=== PATIENT | male | born 1950 | race African-American/Black ===

== ENCOUNTER 2023-04-25 10:15 | Emergency (ER) | payer MEDICARE ==
[2023-04-25 11:02] LABS: #Eosinphils 0.1 thou/uL (0.0-0.7); #Monocytes 0.7 thou/uL (0.11-0.59); #Neutrophils 5.9 thou/uL (1.40-6.50); %Basophils 0.5 % (0.0-1.0); %Eosinophils 1.8 % (0.0-10.0); %Lymphocytes 11.1 % (21.0-51.0); %Monocytes 8.7 % (0.0-10.0); %Neutrophils 77.4 % (42.0-75.0); Hemoglobin 6.6 g/dL (14.0-18.0); Mean Corpuscular Hemoglobin 28.7 pg (27.0-31.0); Mean Corpuscular Volume 95.7 fl (78.0-98.0); Mean Platelet Volume 8.9 fL (7.4-10.4); Platelet Count 379 10x3/uL (130-400); RBC Distribution Width 21.7 % (11.5-14.5); White Blood Cell (WBC) Count 7.6 10x3/uL (4.8-10.8)
[2023-04-25 11:25] LABS: ALT (SGPT) 15 U/L (8-55); AST (SGOT) 16 U/L (5-34); Albumin 3.5 g/dL (3.4-4.8); Alkaline Phosphatase 47 U/L (40-110); Anion Gap 15 mmol/L (10-20); BUN (Urea Nitrogen) 91 mg/dL (8.4-25.7); Bilirubin, Total 0.2 mg/dL (0.2-1.2); Calc. Creatinine Clearance 0 mL/min (70-130); Calcium 8.5 mg/dL (7.8-10.44); Carbon Dioxide 18 mmol/L (23-31); Chloride 113 mmol/L (98-107); Estimated GFR 11; Globulin 3.6 g/dL (2.4-3.5); Glucose 141 mg/dL (83-110); Potassium 4.7 mmol/L (3.5-5.1); Protein, Total 7.1 g/dL (5.8-8.1); Sodium 141 mmol/L (136-145)
== END 2023-04-25 15:27 | disposition home or self-care (01) ==
LOC: ERS 10:15
DX: D64.9 Anemia, unspecified (principal); I10 Essential (primary) hypertension; Z79.82 Long term (current) use of aspirin
CPT/HCPCS: 36430; 80053; 85025; 86850; 86900; 86901; 86920; 99284; P9016; 36415

== ENCOUNTER 2023-06-05 12:16 | Emergency (ER) | payer MEDICARE ==
[2023-06-05 13:05] LABS: #Basophils 0.1 thou/uL (0.0-0.2); #Eosinphils 0.2 thou/uL (0.0-0.7); #Monocytes 0.7 thou/uL (0.11-0.59); #Neutrophils 5.1 thou/uL (1.40-6.50); %Basophils 0.7 % (0.0-1.0); %Eosinophils 2.7 % (0.0-10.0); %Lymphocytes 14.1 % (21.0-51.0); %Monocytes 9.8 % (0.0-10.0); %Neutrophils 71.8 % (42.0-75.0); Hemoglobin 5.5 g/dL (14.0-18.0); Mean Corpuscular HGB CONC 29.7 g/dL (32.0-36.0); Mean Corpuscular Hemoglobin 30.2 pg (27.0-31.0); Mean Corpuscular Volume 101.6 fl (78.0-98.0); Mean Platelet Volume 8.8 fL (7.4-10.4); Platelet Count 290 10x3/uL (130-400); RBC Distribution Width 20.1 % (11.5-14.5); Red Blood Cell (RBC) Count 1.82 mill/uL (4.70-6.10)
[2023-06-05 13:31] LABS: ALT (SGPT) 16 U/L (8-55); AST (SGOT) 17 U/L (5-34); Albumin 3.3 g/dL (3.4-4.8); Alkaline Phosphatase 64 U/L (40-110); Anion Gap 13 mmol/L (10-20); BUN (Urea Nitrogen) 97 mg/dL (8.4-25.7); Bilirubin, Total 0.2 mg/dL (0.2-1.2); Calc. Creatinine Clearance 0 mL/min (70-130); Calcium 8.3 mg/dL (7.8-10.44); Carbon Dioxide 19 mmol/L (23-31); Chloride 113 mmol/L (98-107); Estimated GFR 9; Globulin 3.4 g/dL (2.4-3.5); Glucose 162 mg/dL (83-110); Potassium 4.9 mmol/L (3.5-5.1); Protein, Total 6.7 g/dL (5.8-8.1); Sodium 140 mmol/L (136-145)
== END 2023-06-05 17:58 | disposition home or self-care (01) ==
LOC: ERS 12:16
DX: D64.9 Anemia, unspecified (principal); N17.9 Acute kidney failure, unspecified; C64.9 Malignant neoplasm of unspecified kidney, except renal pelvis; I10 Essential (primary) hypertension
CPT/HCPCS: 36430; 80053; 85025; 86850; 86900; 86901; 86920; P9016; 36415; 99284